=== PATIENT | female | born 1975 | race Two or more races ===

== ENCOUNTER → 2017-07-22 | Day surgery (SDC) | payer BC ==
[~2017-07-22] MED LIST: FERR-26 PO; IV RINGERS,LACTATED 1000ML 1,000 ML IV SCH; LIDOCAINE 1% PF 2 ML VIAL. ID PRN; MIDAZOLAM HCL/PF 2 MG/2 ML VIAL. IV PRN; MULT1TAB52 PO; PROPOFOL 40 ML IV ONE; fentaNYL PF VIAL 100 MCG/2 ML VIAL IV PRN
--- NOTE | 2017-07-22 08:30 | PDOC1 ---
HISTORY & PHYSICAL H&P Kae Malagon [id number] 1975 07/16/2017 01:30 PM 09/15 [facility], [facility] OUR PATIENTS COME FIRST [address] [place] [address] Ph. [phone] Patient: Kae Malagon Date of : 1975 Date: 07/16/2017 1:30 PM Visit Type: Consult This 42 year old female presents for Anemia and heme positive stool. History of Present Illness: 1. Anemia Type of anemia was acquired for deficiency anemia (iron deficient). Additional information: Patient has hgb 8.4 and had low serum iron. Had been treated with oral and IV iron and has persistent low hgb. Had also ?heme positive stool. Patient is not sure of that. Had family member who interpreted the information. MCV has been 66. does not have increase menstrual loss. TSH is normal. 2. heme positive stool As per patient PCP had done some stool test and it has been positive. I do not have that information available from the PCP. INTAKE COMMENTS: Intake Comments: Nurse Note: the pt is here today due to low iron levels. PROBLEM LIST: No active problems PAST MEDICAL/SURGICAL HISTORY (Detailed) Disease/disorder Onset Date Management Date Comments section Medications (Active): Started Medication Directions Instruction Stopped Vitamin B-12 1,000 mcg/mL injection solution inject 0.1 milliliter by intramuscular route every month Allergies: Ingredient Reaction Medication Name Comment NO KNOWN ALLERGIES REVIEW OF SYSTEMS System Neg/Pos Details Constitutional Negative Chills, fever, malaise and weight loss. ENMT Negative Sore throat. Eyes Negative Double vision. Respiratory Negative Dyspnea and wheezing. Cardio Negative Chest pain and irregular heartbeat/palpitations. GI Positive See HPI. GI Negative See HPI. Negative Dysuria and hematuria. Endocrine Negative Cold intolerance and heat intolerance. Psych Negative Anxiety. Integumentary Negative Hives and rash. MS Negative Joint pain. Enmanuel/Lymph Negative Easy bleeding and easy bruising. Allergic/Immuno Negative Food allergies. VITAL SIGNS Time BP mm/Hg Pulse /min Resp /min Temp F Ht ft Ht in Ht cm Wt lb Wt kg BMI kg/ m2 BSA m2 O2 Sat% 1:38 PM 98.1 5.0 2.00 157.48 97.80 44.361 17.89 Time Measured by 1:38 PM Danielle Lopez PHYSICAL EXAM: Exam Findings Details Constitutional Normal Well developed. Eyes Normal Conjunctiva - Right: Normal, Left: Normal. Sclera - Right: Normal, Left: Normal. Nasopharynx Normal Lips/teeth/gums - Normal. Neck Exam Normal Inspection - Normal. Thyroid gland - Normal. Respiratory Normal Inspection - Normal. Auscultation - Normal. Cardiovascular Normal Regular rate and rhythm. No murmurs, gallops, or rubs. Vascular Normal Pulses - Carotids: Normal, Femoral: Normal, Dorsalis pedis: Normal. Abdomen Normal Inspection - Normal. Anterior palpation - No guarding. No abdominal tenderness. No hepatic enlargement. No splenic enlargement. No hernia. No Ascites. Skin Normal Inspection - Normal. Extremity Normal No edema. Psychiatric Normal Oriented to time, place, person, and situation. Appropriate mood and effect. Assessment/Plan # Detail Type Description 1. Assessment Iron deficiency anemia due to chronic blood loss (D50.0). Patient Plan CBC Iron and TIBC Celiac disease panel. Stool occult blood. Plan Orders Stool Occult Blood to be performed today. 2. Assessment Gastrointestinal hemorrhage, unspecified gastrointestinal hemorrhage type (K92.2). Patient Plan schedule EGD/colonoscopy. Plan Orders Further diagnostic evaluations ordered today include(s) Colonoscopy and EGD to be performed today. She is to schedule a follow-up visit with Tin Aranda MD upon completion of work-up Electronically signed by: Tin Aranda MD 07/16/2017 02:02 PM Document generated by: Tin Aranda 07/16/2017 02:02 PM Bobby Jaquez MD, [facility]; Fredrick Nunn MD Internal Medicine; Imani Martinez MD, Internal Medicine; Dayron Aranda MD Internal Medicine; Tin Aradna MD, Gastroenterology; Donald Hickman MD, Rheumatology, S. Yogesh Schwartz, Physical Medicine/Rehab JDavie Medellin APRN ------ 07/22/17 Patient seen and examined. No change in H&P. TIN ARANDA MD Jul 22, 2017 08:30
[2017-07-22 09:27] LABS: NEG OBC UR NEG; POS OBC UR POS
[2017-07-22 10:50] VITALS: BP 127/62
--- NOTE | 2017-07-23 14:16 | PATHOLOGY ---
PATHOLOGY REPORT * * * * * * * * FINAL DIAGNOSIS: Duodenal biopsy: - No significant pathologic abnormalities. (JPM:pit; 07/23/2017) COMMENT: Sections of the duodenal biopsy reveal segments of small intestine mucosa. Where best oriented, the mucosal villi appear normal. There are no sprue-like changes or significant inflammatory changes. (JPM:pit; 07/23/2017) REPORT ELECTRONICALLY SIGNED BY: Kunal Gilmore M.D. DATE/TIME: 07/23/2017 14:15 * * * * * * * * GROSS PATHOLOGY: Received in formalin labeled "Kae Thomas, duodenal biopsy" is a segment of snyder soft tissue measuring 0.4 cm in maximum dimension. The specimen is submitted entirely in cassette A1. (TSD; 07/22/2017) INITIAL CPT CODE(S): A; 48488 Professional services performed [place] [facility] [place] [address] Technical services performed by [facility] at [address] [place] [address]. SPECIMEN(S) RECEIVED: A.Duodenal biopsy CLINICAL HISTORY: Anemia PATIENT: KAE THOMAS /AGE: 704/12/1975 (Age: 42) PATIENT #: [id number] ALT CASE #: SPECIMEN COLLECTION DATE: 07/22/2017 SPECIMEN RECEIVED DATE: 07/22/2017 [facility] - [address] [place] [address] - PHONE: [phone] * * * END OF REPORT * * *
== END | disposition home or self-care (01) ==
LOC: SURG 08:15
PROVIDERS: ATTEND Internal Medicine Gastroenterology
DX: D50.0 Iron deficiency anemia secondary to blood loss (chronic) (principal); D64.9 Anemia, unspecified; Z88.1 Allergy status to other antibiotic agents; Z98.51 Tubal ligation status
CPT/HCPCS: 43239; 45378; 81025; 88305; J2704